=== PATIENT | male | born 2000 | race Caucasian/White ===

== ENCOUNTER 2019-03-30 12:07 | Emergency (ER) | payer BC, OTHER ==
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
[2019-03-30] MEDS ORDERED: Silver Sulfadiazine 1% Crm 50 GM Tube TOP ONE (12:56)
== END 2019-03-30 13:18 | disposition home or self-care (01) ==
LOC: VM.ED 12:07
DX: T23.201A Burn of second degree of right hand, unspecified site, initial encounter (principal)
CPT/HCPCS: 16020; 16025; 99283-25; A9270-GY